=== PATIENT | female | born 1960 | race Caucasian/White ===

== ENCOUNTER 2018-10-08 06:29 | Emergency (ER) | payer MEDICAID ==
[2018-10-08] MEDS ORDERED: Ketorolac 30 MG/ML SDV IVPUSH ONE (06:57)
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
[2018-10-08] MEDS ORDERED: Sodium Chloride 0.9% 1,000 ML IV SCH (07:00)
[2018-10-08] MEDS ORDERED: Iopamidol 755 Mg/ML 100 ML Bottle IV ONE (07:51)
[2018-10-08] MEDS ORDERED: cefTRIAXone 1 GM Vial IM ONE (09:32)
[2018-10-08] MEDS ORDERED: Acetaminophen/HYDROcodone 325-5 MG Tab PO ONE (09:35)
[2018-10-08] MEDS ORDERED: cefTRIAXone 500 MG Vial IVPUSH STA (09:35)
[2018-10-08 10:06] VITALS: BP 115/71
== END 2018-10-08 09:59 | disposition home or self-care (01) ==
LOC: FB.ED 06:29
DX: S61.432A Puncture wound without foreign body of left hand, initial encounter (principal); E78.00 Pure hypercholesterolemia, unspecified; K21.9 Gastro-esophageal reflux disease without esophagitis; E03.9 Hypothyroidism, unspecified; F10.129 Alcohol abuse with intoxication, unspecified; Y90.1 Blood alcohol level of 20-39 mg/100 ml; R82.5 Elevated urine levels of drugs, medicaments and biological substances; Y04.8XXA Assault by other bodily force, initial encounter; Y07.499 Other family member, perpetrator of maltreatment and neglect; Z88.2 Allergy status to sulfonamides; Z88.1 Allergy status to other antibiotic agents; Z79.899 Other long term (current) drug therapy
CPT/HCPCS: 36415; 71260; 74177; 80048; 80076; 80305; 81001; 85025; 85610; 96361; 96374; 96375; 99284; A9270; G0480; J0696; J1885; J7030; Q9967